=== PATIENT | female | born 1990 | race Caucasian/White ===

== ENCOUNTER 2023-05-30 10:00 | Emergency (ER) | payer OTHER ==
[~2023-05-30] VITALS: Ht 167.6 cm; Wt 70.1 kg
[2023-05-30] MEDS ORDERED: AMOXICILLIN 500 MG CAP PO ONE (11:40)
[2023-05-30] MEDS ORDERED: PERCOCET 5MG/325MG TAB PO ONE (11:40)
[2023-05-30] MEDS ORDERED: IBUPROFEN 600MG TAB PO ONE (11:40)
[2023-05-30] MEDS: ACETAMINOPHEN 325 MG TAB PO ONE (12:17)
[2023-05-30] MEDS: IBUPROFEN 600MG TAB PO ONE (12:18)
[2023-05-30 13:02] VITALS: BP 117/70; TEMP 97.9; O2SAT 100
== END 2023-05-30 13:08 | disposition home or self-care (01) ==
LOC: M ED 11:35
DX: S00.93XA Contusion of unspecified part of head, initial encounter (principal); S00.33XA Contusion of nose, initial encounter; W18.2XXA Fall in (into) shower or empty bathtub, initial encounter; Y92.002 Bathroom of unspecified non-institutional (private) residence as the place of occurrence of the external cause; Y93.89 Activity, other specified; Y99.9 Unspecified external cause status

== ENCOUNTER 2024-01-25 17:20 | Emergency (ER) | payer OTHER ==
[~2024-01-25] VITALS: Ht 167.6 cm; Wt 68.4 kg
[2024-01-25] MEDS: ONDANSETRON 4MG 2ML VIAL IV ONE (19:31)
[2024-01-25] MEDS: NS 1,000 ML IV ONE (19:31)
[2024-01-25 19:36] LABS: BASO % 0.5 % (0.0-1.0); EOS # 0.2 10^3/uL (0.0-0.5); EOS % 2.3 % (0.0-3.0); HEMATOCRIT 35.2 % (36.0-47.0); HEMOGLOBIN 12.1 g/dl (12.0-15.5); LYMPH # 2.4 10^3/uL (1.5-5.0); LYMPH % 30.7 % (24.0-44.0); MEAN CORPUSCULAR HEMOGLOBIN 30.3 pg (27.0-33.0); MEAN CORPUSCULAR HGB CONC 34.4 g/dl (32.0-36.5); MEAN CORPUSCULAR VOLUME 88.2 fl (80.0-96.0); MONO # 0.5 10^3/uL (0.0-0.8); NEUTROPHILS # 4.6 10^3/uL (1.5-8.5); NEUTROPHILS % 59.2 % (36.0-66.0); PLATELET COUNT, AUTOMATED 175 10^3/uL (150-450); RED BLOOD COUNT 3.99 10^6/uL (4.00-5.40); WHITE BLOOD COUNT 7.7 10^3/uL (4.0-10.0)
[2024-01-25 19:56] LABS: LIPASE 55 U/L (12-53)
[2024-01-25 19:58] LABS: ALBUMIN 3.1 G/DL (3.2-5.2); ALKALINE PHOSPHATASE 34 U/L (35-104); ALT/SGPT < 9 U/L (7.0-40); AST/SGOT < 8 U/L (<34); BILIRUBIN,DIRECT < 0.1 MG/DL (<0.4); BILIRUBIN,TOTAL 0.2 MG/DL (0.3-1.2); MAGNESIUM LEVEL 1.9 MG/DL (1.8-2.4); TOTAL PROTEIN 6.5 G/DL (5.7-8.2)
[2024-01-25] MEDS: ACETAMINOPHEN 325 MG TAB PO ONE (21:12)
[2024-01-25] MEDS ORDERED: ONDA-282 PO (23:51)
[2024-01-26 00:16] VITALS: BP 103/59; TEMP 97.6; O2SAT 99
== END 2024-01-26 00:19 | disposition home or self-care (01) ==
LOC: M ED 17:20
DX: O21.9 Vomiting of pregnancy, unspecified (principal); Z3A.09 9 weeks gestation of pregnancy; O09.521 Supervision of elderly multigravida, first trimester
CPT/HCPCS: 76801; 80047; 80076; 83690; 83735; 84702; 85025; 93976; 96361; 96374; 99284; J2405

== ENCOUNTER → 2024-02-15 | Outpatient (CLI) | payer OTHER ==
[~2024-02-15] MED LIST: ONDA-282 PO
[2024-02-15 12:52] LABS: HEMOGLOBIN 12.7 g/dl (12.0-15.5); MEAN CORPUSCULAR HEMOGLOBIN 30.5 pg (27.0-33.0); MEAN CORPUSCULAR HGB CONC 32.6 g/dl (32.0-36.5); MEAN CORPUSCULAR VOLUME 93.5 fl (80.0-96.0); PLATELET COUNT, AUTOMATED 206 10^3/uL (150-450); RED BLOOD COUNT 4.17 10^6/uL (4.00-5.40); WHITE BLOOD COUNT 6.3 10^3/uL (4.0-10.0)
[2024-02-15 13:53] LABS: HIV 1&2 SCREEN NEGATIVE (NEGATIVE)
[2024-02-15 14:01] LABS: HEPATITIS C VIRUS ABY INDEX < 0.02 INDEX (<0.8)
[2024-02-15 14:12] LABS: GC DNA AMPLIFICATION NEGATIVE (NEGATIVE)
== END ==
LOC: M PLALAB 10:03
PROVIDERS: ATTEND Nurse Practitioner Family
DX: O09.521 Supervision of elderly multigravida, first trimester (principal); Z3A.00 Weeks of gestation of pregnancy not specified; Z81.0 Family history of intellectual disabilities

== ENCOUNTER 2024-03-10 04:39 | Emergency (ER) | payer OTHER ==
[~2024-03-10] VITALS: Ht 167.6 cm; Wt 87.6 kg
[2024-03-10 05:38] LABS: BASO % 0.1 % (0.0-1.0); EOS % 0.1 % (0.0-3.0); HEMATOCRIT 39.2 % (36.0-47.0); HEMOGLOBIN 13.4 g/dl (12.0-15.5); LYMPH # 0.3 10^3/uL (1.5-5.0); LYMPH % 3.1 % (24.0-44.0); MEAN CORPUSCULAR HEMOGLOBIN 31.2 pg (27.0-33.0); MEAN CORPUSCULAR HGB CONC 34.2 g/dl (32.0-36.5); MEAN CORPUSCULAR VOLUME 91.2 fl (80.0-96.0); MONO # 0.2 10^3/uL (0.0-0.8); NEUTROPHILS # 8.5 10^3/uL (1.5-8.5); NEUTROPHILS % 94.4 % (36.0-66.0); PLATELET COUNT, AUTOMATED 170 10^3/uL (150-450)
[2024-03-10 06:06] LABS: LIPASE 34 U/L (12-53)
[2024-03-10 06:09] LABS: ALBUMIN 3.3 G/DL (3.2-5.2); ALKALINE PHOSPHATASE 43 U/L (35-104); ALT/SGPT 10 U/L (7.0-40); AST/SGOT 12 U/L (<34); BILIRUBIN,DIRECT 0.2 MG/DL (<0.4); BILIRUBIN,TOTAL 0.6 MG/DL (0.3-1.2); BLOOD UREA NITROGEN 14 MG/DL (9-23); CALCIUM LEVEL 8.2 MG/DL (8.5-10.1); CARBON DIOXIDE LEVEL 25 MMOL/L (20-31); CHLORIDE LEVEL 103 MMOL/L (98-107); CREATININE FOR GFR 0.64 MG/DL (0.55-1.30); GLOMERULAR FILTRATION RATE > 60.0 (>60); GLUCOSE, FASTING 150 MG/DL (60-100); POTASSIUM SERUM 4.1 MMOL/L (3.5-5.1); SODIUM LEVEL 140 MMOL/L (136-145)
[2024-03-10 06:44] LABS: HCG, SERUM QUANTITATIVE 53413.2 MIU/ML (<4.2)
[2024-03-10 07:03] LABS: AMORPHOUS SEDIMENT SMALL (NEGATIVE); APPEARANCE, URINE TURBID (CLEAR); BACTERIA, URINE AUTO 1+ (NEGATIVE); BILIRUBIN, URINE AUTO NEGATIVE (NEGATIVE); BLOOD, URINE BLOOD NEGATIVE (NEGATIVE); COLOR, URINE AMBER (YELLOW); GLUCOSE, URINE (UA) AUTO NEGATIVE (NEGATIVE); KETONE, URINE AUTO 1+ mg/dL (NEGATIVE); LEUKOCYTE ESTERASE, URINE AUTO NEGATIVE (NEGATIVE); MUCUS, URINE LARGE (NEGATIVE); NITRITE, URINE AUTO NEGATIVE (NEGATIVE); PROTEIN, URINE AUTO 1+ mg/dL (NEGATIVE); RBC, URINE AUTO 0 /HPF (0-3); SPECIFIC GRAVITY URINE AUTO 1.035 (1.002-1.035); SQUAMOUS EPITHELIAL CELL UR AU 7 /HPF (0-6); WBC, URINE AUTO 0 /HPF (0-3)
[2024-03-10] MEDS: NS (Normal Saline) 0.9% 1,000 ML IV ONE (08:50)
[2024-03-10] MEDS: ONDANSETRON 4MG 2ML VIAL IV ONE (09:03)
[2024-03-10 10:05] VITALS: BP 98/61; TEMP 98.9; O2SAT 100
[2024-03-10] MEDS ORDERED: ONDA-282 PO (10:08)
== END 2024-03-10 10:18 | disposition home or self-care (01) ==
LOC: M ED 04:39
DX: O21.9 Vomiting of pregnancy, unspecified (principal); Z3A.15 15 weeks gestation of pregnancy
CPT/HCPCS: 76815; 80048; 80076; 81001; 83690; 84702; 85025; 87086; 96361; 96374; 99284; J2405

== ENCOUNTER 2024-03-20 09:11 | Emergency (ER) | payer OTHER ==
[~2024-03-20] VITALS: Ht 167.6 cm; Wt 70.9 kg
[2024-03-20 09:33] VITALS: TEMP 99.1
[2024-03-20 10:05] LABS: BASO % 0.3 % (0.0-1.0); EOS # 0.1 10^3/uL (0.0-0.5); EOS % 0.8 % (0.0-3.0); HEMATOCRIT 37.6 % (36.0-47.0); HEMOGLOBIN 12.5 g/dl (12.0-15.5); LYMPH % 12.9 % (24.0-44.0); MEAN CORPUSCULAR HEMOGLOBIN 31.2 pg (27.0-33.0); MEAN CORPUSCULAR HGB CONC 33.2 g/dl (32.0-36.5); MEAN CORPUSCULAR VOLUME 93.8 fl (80.0-96.0); MONO # 0.5 10^3/uL (0.0-0.8); MONO % 6.6 % (2.0-8.0); NEUTROPHILS % 78.9 % (36.0-66.0); PLATELET COUNT, AUTOMATED 170 10^3/uL (150-450); RED BLOOD COUNT 4.01 10^6/uL (4.00-5.40); WHITE BLOOD COUNT 7.5 10^3/uL (4.0-10.0)
[2024-03-20 10:23] LABS: ALBUMIN 3.2 G/DL (3.2-5.2); ALKALINE PHOSPHATASE 51 U/L (35-104); ALT/SGPT 62 U/L (7.0-40); AST/SGOT 54 U/L (<34); BILIRUBIN,DIRECT < 0.1 MG/DL (<0.4); BILIRUBIN,TOTAL 0.3 MG/DL (0.3-1.2); BLOOD UREA NITROGEN 7 MG/DL (9-23); CARBON DIOXIDE LEVEL 26 MMOL/L (20-31); CHLORIDE LEVEL 104 MMOL/L (98-107); CK-MB VALUE MASS < 1.0 NG/ML (<3.6); CPK CREATINE PHOSPHOKINASE 29 U/L (34-145); CREATININE FOR GFR 0.61 MG/DL (0.55-1.30); GLOMERULAR FILTRATION RATE > 60.0 (>60); GLUCOSE, FASTING 81 MG/DL (60-100); MB/CK RELATIVE INDEX 3.44 (< OR =4); POTASSIUM SERUM 4.1 MMOL/L (3.5-5.1); SODIUM LEVEL 138 MMOL/L (136-145); TOTAL PROTEIN 7.2 G/DL (5.7-8.2)
[2024-03-20] MEDS ORDERED: VENTAER INH (11:14)
[2024-03-20 11:16] VITALS: BP 100/65; O2SAT 99
== END 2024-03-20 11:37 | disposition home or self-care (01) ==
LOC: M ED 09:11
DX: J09.X2 Influenza due to identified novel influenza A virus with other respiratory manifestations (principal); B34.0 Adenovirus infection, unspecified; Z79.52 Long term (current) use of systemic steroids; Z79.899 Other long term (current) drug therapy

== ENCOUNTER → 2024-04-12 | Outpatient (CLI) | payer OTHER ==
[~2024-04-12] MED LIST changes: +VENTAER INH
== END ==
LOC: M WHC 08:15
PROVIDERS: ATTEND Obstetrics & Gynecology
DX: Z34.92 Encounter for supervision of normal pregnancy, unspecified, second trimester (principal); Z3A.20 20 weeks gestation of pregnancy

== ENCOUNTER → 2024-05-13 | Outpatient (CLI) | payer OTHER ==
[2024-05-13 15:49] LABS: HEMATOCRIT 33.6 % (36.0-47.0); HEMOGLOBIN 10.9 g/dl (12.0-15.5); MEAN CORPUSCULAR HGB CONC 32.4 g/dl (32.0-36.5); MEAN CORPUSCULAR VOLUME 95.5 fl (80.0-96.0); PLATELET COUNT, AUTOMATED 207 10^3/uL (150-450); RED BLOOD COUNT 3.52 10^6/uL (4.00-5.40); WHITE BLOOD COUNT 9.9 10^3/uL (4.0-10.0)
[2024-05-13 15:54] LABS: GLUCOSE CHALLENGE TEST 1 HOUR 121 MG/DL (LESS THAN 140)
[2024-05-13 16:22] LABS: HIV 1&2 SCREEN NEGATIVE (NEGATIVE)
[2024-05-13 16:30] LABS: HEPATITIS C VIRUS ABY INDEX 0.04 INDEX (<0.8)
[2024-05-13 17:03] LABS: Trichomonas vaginalis (AMP) NOT DETECTED (NEGATIVE)
[2024-05-13 17:27] LABS: GC DNA AMPLIFICATION NEGATIVE (NEGATIVE)
== END ==
LOC: M PLALAB 12:10
PROVIDERS: ATTEND Nurse Practitioner Family
DX: Z34.80 Encounter for supervision of other normal pregnancy, unspecified trimester (principal)

== ENCOUNTER 2024-05-22 15:36 | Emergency (ER) | payer OTHER ==
[~2024-05-22] VITALS: Ht 167.6 cm; Wt 79.8 kg
[2024-05-22 15:59] VITALS: BP 113/70; TEMP 99
[2024-05-22] MEDS ORDERED: FLINCHW2 PO (16:42)
== END 2024-05-22 16:47 | disposition admitted as inpatient to this hospital (09) ==
LOC: M ED 15:36
DX: O9A.212 Injury, poisoning and certain other consequences of external causes complicating pregnancy, second trimester (principal); R07.89 Other chest pain; M79.674 Pain in right toe(s); W08.XXXA Fall from other furniture, initial encounter; Y92.009 Unspecified place in unspecified non-institutional (private) residence as the place of occurrence of the external cause; Y93.89 Activity, other specified; Y99.9 Unspecified external cause status

== ENCOUNTER 2024-05-22 16:26 | Outpatient (CLI) | payer OTHER ==
[~2024-05-22] VITALS: Ht 167.6 cm; Wt 77.0 kg
[2024-05-22 16:36] VITALS: BP 120/71
[2024-05-22] MEDS ORDERED: FLINCHW2 PO (16:42)
[2024-05-22] MEDS ORDERED: HOME MED LIST COMPLETE! XX SCH (16:45)
== END 2024-05-22 18:15 | disposition home or self-care (01) ==
LOC: M LDO 16:26
PROVIDERS: ATTEND Specialist
DX: O26.892 Other specified pregnancy related conditions, second trimester (principal); O09.522 Supervision of elderly multigravida, second trimester; O99.612 Diseases of the digestive system complicating pregnancy, second trimester; M54.6 Pain in thoracic spine; K46.9 Unspecified abdominal hernia without obstruction or gangrene; W07.XXXA Fall from chair, initial encounter; Y92.9 Unspecified place or not applicable; Y93.9 Activity, unspecified; Y99.9 Unspecified external cause status; Z3A.26 26 weeks gestation of pregnancy
CPT/HCPCS: 59025; G0463